=== PATIENT | male | born 1995 | race Two or more races ===

== ENCOUNTER 2018-12-01 03:16 | Emergency (ER) | payer OTHER ==
[2018-12-01] MEDS ORDERED: MAG HYDROX/AL HYDROX/SIMETH 30 ML UDC PO STA (03:27)
[2018-12-01] MEDS ORDERED: PHENobarb/HYOSCY/ATROPINE/SCOP 5 ML SYRINGE PO STA (03:28)
[2018-12-01] MEDS ORDERED: LIDOCAINE VISCOUS 2% 15 ML UDC MM STA (03:28)
--- NOTE | 2018-12-01 03:34 | ED Physician Documentation ---
PD HPI CHEST PAIN - Stated complaint Stated Complaint: R CHEST PAIN - Chief complaint Chief Complaint: Cardiac - History obtained from History obtained from: Patient - History of Present Illness Timing - onset: How many hours ago (5) Timing - onset during: Light activity Timing - details: Still present Quality: Pain Location: Right chest Worsened by: Position (supine position) Associated symptoms: Shortness of air Similar symptoms before: Has not had sx before - Additional information Additional information: The patient is a 23-year-old male who presents with right anterior chest pain that started about 5 hours prior to arrival. He has noticed that the pain is worse when lying down. He reports associated shortness of breath. He denies cough, abdominal pain, nausea or vomiting. He denies fever. He denies history of similar symptoms in the past. He does not smoke cigarettes. There is no family history of early [place]. Review of Systems Constitutional: denies: Fever, Fatigue Nose: denies: Congestion Throat: denies: Sore throat Cardiac: reports: Chest pain / pressure. denies: Palpitations Respiratory: reports: Dyspnea. denies: Cough GI: denies: Abdominal Pain, Nausea, Vomiting Skin: denies: Rash Musculoskeletal: denies: Back pain, Extremity pain Neurologic: denies: Focal weakness, Numbness, Syncope, Headache PD PAST MEDICAL HISTORY - Past Medical History Past Medical History: No - Past Surgical History Past Surgical History: No - Present Medications Home Medications: Ambulatory Orders Medication Instructions Recorded Confirmed No Known Home Medications 12/01/18 12/01/18 - Allergies Allergies/Adverse Reactions: Allergies Allergy/AdvReac Type Severity Reaction Status Date / Time No Known Drug Allergies Allergy Verified 12/01/18 03:23 - Social History Does the pt smoke?: No Smoking Status: Never smoker Does the pt drink ETOH?: Yes Does the pt have substance abuse?: No - Immunizations Immunizations are current?: Yes - POLST Patient has POLST: No PD ED PE NORMAL - Vitals Vital signs reviewed: Yes (hypertensive) - General General: Alert and oriented X 3, Well developed/nourished - HEENT HEENT: Atraumatic, Pharynx benign - Neck Neck: No adenopathy, No JVD - Cardiac Cardiac: RRR, No murmur - Respiratory Respiratory: No respiratory distress, Clear bilaterally, Other (Tenderness to palpation of right anterior chest wall.) - Abdomen Abdomen: Soft, Non tender - Back Back: No CVA TTP - Derm Derm: No rash - Extremities Extremities: No edema, No calf tenderness / cord - Neuro Neuro: Alert and oriented X 3, No motor deficit, Normal speech Results - Vitals Vitals: Vital Signs - 24 hr 12/01/18 12/01/18 12/01/18 03:20 03:24 03:52 Temperature 37.2 C Heart Rate 74 68 Respiratory 18 17 Rate Blood Pressure 161/96 H 125/75 Blood Pressure 125/75 [Left] Blood Pressure 161/96 H [Right] O2 Saturation 98 96 12/01/18 04:41 Temperature 36.5 C Heart Rate 75 Respiratory 13 Rate Blood Pressure 121/75 Blood Pressure [Left] Blood Pressure [Right] O2 Saturation 97 Oxygen O2 Source Room air - EKG (time done) 03:25 Rate: Rate (enter#) (71) Rhythm: NSR [place]: Normal Ischemia: ST elevation c/w repol, T wave inversion (in lead III.) Computer interpretation: Agree with computer - Labs Labs: Laboratory Tests 12/01/18 12/01/18 12/01/18 04:01 04:01 04:01 WBC 8.1 RBC 5.33 Hgb 15.1 Hct 47.3 MCV 88.7 MCH 28.3 MCHC 31.9 L RDW 13.1 Plt Count 269 MPV 8.8 Neut # (Auto) 4.1 Lymph # (Auto) 3.3 [place] # (Auto) 0.6 Eos # (Auto) 0.1 Baso # (Auto) 0.0 Absolute Nucleated RBC 0.00 Nucleated RBC % 0.0 Sodium 140 Potassium 3.8 Chloride 105 Carbon Dioxide 22 Anion Gap 13.0 BUN 16 Creatinine 0.9 Estimated GFR (MDRD) 105 Glucose 109 H Calcium 9.6 Troponin I < 0.04 Troponin I High Sens 5.9 - Rads (name of study) CXR Radiology: Prelim report reviewed, EMP read contemporaneously, See rad report (No acute abnormality seen in the chest.) PD MEDICAL DECISION MAKING - ED course Complexity details: reviewed results, re-evaluated patient, considered differential, d/w patient ED course: The patient's right-sided chest pain is most likely due to chest wall strain. His pain is reproduced with palpation of the chest wall. His EKG reveals no evidence of cardiac ischemia. Chest x-ray reveals no evidence of cardiopulmonary disease. CBC, chemistry panel, and troponin are normal. I doubt pulmonary embolus. Gastroesophageal reflux was considered. GI cocktail was administered and it provided only minimal improvement in his discomfort. I discussed with him the likely diagnosis, symptomatic treatment and outpatient follow-up, as well as potentially worrisome signs or symptoms that should prompt reevaluation in the emergency department. Departure - Departure Disposition: 01 Home, Self Care Clinical Impression: Chest wall pain Condition: Stable Instructions: ED Strain Chest Wall Follow-Up: WEI CAVAZOS [Primary Care Provider] - Comments: Avoid strenuous activity for the next 2 or 3 days. He can use Tylenol up to 650 mg 4 times daily if needed for discomfort. Follow-up with your primary physician within 1 week if not completely resolved. Return to the emergency department if you develop increasing chest pain, shortness of breath, or otherwise worsening symptoms.
--- NOTE | 2018-12-01 03:49 | XRAY Report ---
Reason: chest pain Procedure Date: 12/01/2018 Accession Number: [id number] / [id number] Procedure: XR - Chest 1 View X-Ray CPT Code: 34988 FULL RESULT: EXAM: CHEST RADIOGRAPHY EXAM DATE: 12/01/2018 03:44 AM. CLINICAL HISTORY: Chest pain. COMPARISON: None. TECHNIQUE: 1 view. FINDINGS: Lungs/Pleura: No alveolar consolidation or pleural effusion seen. No pneumothorax. Mediastinum: Within exam limitations, the cardiomediastinal contour is normal. Other: None. IMPRESSION: 1. No acute abnormality seen in the chest. [facility]
[2018-12-01 04:06] LABS: BASOPHILS % (AUTO) 0.4 %; EOSINOPHILS # (AUTO) 0.1 10^3/uL (0.0-0.7); HGB - HEMOGLOBIN 15.1 g/dL (14.0-18.0); LYMPHOCYTES # (AUTO) 3.3 10^3/uL (1.5-3.5); LYMPHOCYTES % (AUTO) 40.2 %; MEAN CORPUSCULAR HEMOGLOBIN 28.3 pg (27.0-31.0); MEAN CORPUSCULAR HGB CONC 31.9 g/dL (32.0-36.0); MEAN CORPUSCULAR VOLUME 88.7 fL (80.0-94.0); MEAN PLATELET VOLUME 8.8 fL (7.4-11.4); MONOCYTES # (AUTO) 0.6 10^3/uL (0.0-1.0); MONOCYTES % (AUTO) 7.1 %; NEUTROPHILS # (AUTO) 4.1 10^3/uL (1.5-6.6); NEUTROPHILS % (AUTO) 50.8 %; PLT - PLATELET COUNT 269 10^3/uL (130-450); RED BLOOD COUNT 5.33 10^6/uL (4.70-6.10); RED CELL DISTRIBUTION WIDTH 13.1 % (12.0-15.0); WHITE BLOOD COUNT 8.1 x10^3/uL (4.8-10.8)
[2018-12-01 04:19] LABS: CALCIUM 9.6 mg/dL (8.5-10.3); CREATININE 0.9 mg/dL (0.6-1.2)
[2018-12-01 04:24] LABS: TROPONIN I < 0.04 ng/mL (<0.49)
[2018-12-01 04:42] VITALS: BP 121/75
== END 2018-12-01 04:56 | disposition home or self-care (01) ==
LOC: ED 03:16
DX: R07.89 Other chest pain (principal)
CPT/HCPCS: 36415; 71045; 80048; 84484; 85025; 93005; 99283; 99284; A9270